=== PATIENT | female | born 1990 | race Caucasian/White ===

== ENCOUNTER 2023-07-24 16:54 | Emergency (ER) | payer OTHER ==
[2023-07-24] MEDS: Ketorolac 60 MG/2 ML SDV IM ONE (19:39)
[2023-07-24 20:02] LABS: AMPHETAMINES SCREEN, URINE NEGATIVE (CUTOFF=500); BARBITURATE SCREEN,URINE NEGATIVE (CUTOFF=200); BENZODIAZEPINES SCREEN,URINE NEGATIVE (CUTOFF=150); BUPRENORPHINE SCREEN,URINE NEGATIVE (CUTOFF=10); METHADONE SCREEN, URINE NEGATIVE (CUTOFF=200); METHAMPHETAMINES SCREEN, URINE NEGATIVE (CUTOFF=500); OXYCODONE SCREEN,URINE NEGATIVE (CUT0FF=100); THC SCREEN,URINE 20 NG/ML NEGATIVE (CUTOFF=50)
== END 2023-07-24 19:49 | disposition home or self-care (01) ==
LOC: JD.ED 16:54
DX: S90.32XA Contusion of left foot, initial encounter (principal); Z91.048 Other nonmedicinal substance allergy status; Z91.030 Bee allergy status; Z88.1 Allergy status to other antibiotic agents; Z91.018 Allergy to other foods; Z79.899 Other long term (current) drug therapy; V47.5XXA Car driver injured in collision with fixed or stationary object in traffic accident, initial encounter
CPT/HCPCS: 70450; 71250; 72125; 73600; 73620; 74176; 80306; 81025; 96372; 99284; J1885; 99282